=== PATIENT | female | born 2000 | race Caucasian/White ===

== ENCOUNTER 2023-06-07 14:06 | Inpatient (IN) ==
[2023-06-07] MEDS ORDERED: Prochlorperazine 5 mg/ml 2 ml VIAL (10 mg) IV PRN (14:34)
[2023-06-07 15:34] LABS: Urine Benzodiazepine Screen None Detected (None Detect); Urine Opiates Screen None Detected (None Detect)
[2023-06-07] MEDS: Lactated Ringers 1000 ml BAG 1,000 ML IV ONE (17:25)
[2023-06-07 17:46] LABS: Hematocrit 41.9 % (35-45); Hemoglobin 13.9 g/dL (11.5-14.3); Mean Corpuscular Hemoglobin 29.8 pg (27-33); Mean Corpuscular Hgb Conc 33.2 g/dL (31-36); Mean Platelet Volume 10.7 fL (7.5-11.2); Platelet Count 244 10^3/uL (150-450); Red Blood Count 4.66 10^6/uL (3.63-4.92); Red Cell Distribution Width 14.5 % (12-17)
[2023-06-07 18:23] LABS: ABS Basophils 0.1 10^3/uL (0.0-0.1); ABS Lymphocytes 2.6 10^3/uL (1.0-4.8); ABS Neutrophils 20.3 10^3/uL (1.5-7.6); ABS Nucleated RBC 0.03 10^3/ul; Eosinophil % 0.1 %; Lymphocyte % 10.9 %; Nucleated Red Blood Cells % 0.1 %/100WBC (0.0-0.8)
[2023-06-07] MEDS: Oxytocin 10 UNITS/ML 1 ML VIAL IM ONE (19:33)
[2023-06-07] MEDS ORDERED: Glycerin ADULT 2.4 gm SUPP PR PRN (20:37)
[2023-06-07] MEDS: Lidocaine 1% VIAL 10 MG/ML 30 ML VIAL INJ PRN (20:43)
[2023-06-07] MEDS: Dibucaine 1% OINT 28.35 GM TUBE PR PRN (20:43)
[2023-06-07] MEDS ORDERED: Lactated Ringers 1000 ml BAG 1,000 ML IV SCH (21:00)
[2023-06-07] MEDS: Lactated Ringers 1000 ml BAG 1,000 ML IV SCH (21:05)
[2023-06-07] MEDS: Dibucaine 1% OINT 28.35 GM TUBE ONE (21:06)
[2023-06-07] MEDS: Buffered Lidocaine 1% SYRIN 1 ml INTRADERM ONE (21:06)
[2023-06-07] MEDS: OBEPIDURAL (200 ML) 0 ML EPIDURAL ONE (21:06)
[2023-06-07] MEDS: Lidocaine 1.5% EPI 1:200,000 30 ML SDV ONE (21:07)
[2023-06-07] MEDS: Witch Hazel PAD JAR TOPICAL PRN (21:42)
[2023-06-08 07:00] LABS: Hematocrit 31.7 % (35-45); Hemoglobin 10.6 g/dL (11.5-14.3); Mean Corpuscular Hemoglobin 29.6 pg (27-33); Mean Corpuscular Hgb Conc 33.3 g/dL (31-36); Mean Corpuscular Volume 88.9 fL (80-97); Mean Platelet Volume 10.1 fL (7.5-11.2); Platelet Count 228 10^3/uL (150-450); Red Blood Count 3.56 10^6/uL (3.63-4.92); Red Cell Distribution Width 14.6 % (12-17); White Blood Count 24.8 10^3/uL (3.8-11.8)
[2023-06-08 08:38] LABS: ABS Monocytes 2.3 10^3/uL (0.0-0.9); ABS Neutrophils 17.3 10^3/uL (1.5-7.6); ABS Nucleated RBC 0.01 10^3/ul; Eosinophil % 0.1 %; Lymphocyte % 20.3 %
[2023-06-09 08:04] VITALS: BP 109/67
[2023-06-09] MEDS: Varicella Virus Vaccine Live 0.5 ML VIAL SUBCUT ONE (12:21)
== END 2023-06-09 17:48 | disposition home or self-care (01) | DRG 560 ==
LOC: MCHOBOUT 14:06 → MCHOB 14:34
PROVIDERS: ADMIT Registered Nurse; ATTEND Registered Nurse